=== PATIENT | male | born 1975 | race Two or more races ===

== ENCOUNTER 2016-06-10 02:57 | Observation (INO) | payer OTHER ==
[2016-06-10] VITALS (8 sets, daily range): BP systolic 118–165; BP diastolic 73–105
[~2016-06-10] VITALS: Ht 170.2 cm; Wt 91.3 kg
--- NOTE | 2016-06-10 03:25 | NUR ---
MSE COMPLETED BY DR MUNSON.
--- NOTE | 2016-06-10 03:36 | NUR ---
RECEIVED A 40 YEAR OLD MALE IN ROOM 7 BIB [facility] FROM [facility] WITH C/O CHEST PAIN AND SOB. PT STATES CHEST PAIN STARTED 0230 AND REPORTS DIFFICULTY BREATHING. PT REPORTS CHEST PAIN IS DULL, NON-RADIATING WITH NAUSEA. [facility] GUARDS AT BEDSIDE. PT A&OX4, RESP EVEN AND UNLABORED, ON GURNEY IN POSITION OF COMFORT, ON FULL CM , OXYGEN 2L NC, CALL LIGHT WITHIN REACH, WILL CONTINUE TO MONITOR.
[2016-06-10 03:46] LABS: BASOPHIL % 0.4 % (0-2); PLATELET COUNT 254 x10^3mcL (130-400); RED CELL DISTRIBUTION WIDTH 13.9 % (11.5-14.5)
[2016-06-10 03:58] LABS: CALCIUM 8.8 mg/dL (8.5-10.1); CARBON DIOXIDE 25.3 mmol/L (21-32); CHLORIDE SERUM 102 mmol/L (98-107); CREATININE SERUM 1.2 mg/dL (0.7-1.3); GFR1 > 60 mL/min; GLUCOSE SERUM 126 mg/dL (74-106); POTASSIUM SERUM 3.7 mmol/L (3.5-5.1); SODIUM SERUM 138 mmol/L (136-145)
[2016-06-10 04:04] LABS: ALBUMIN 3.6 g/dL (3.4-5.0); ALKALINE PHOSPHATASE 74 U/L (46-116); ALT/SGPT 29 U/L (16-63); AST/SGOT 17 U/L (15-37); BILIRUBIN TOTAL 0.2 mg/dL (0.20-1.00); TOTAL PROTEIN, SERUM 7.4 g/dL (6.4-8.2)
--- NOTE | 2016-06-10 04:37 | NUR ---
PT ON GURNEY ASLEEP, RESP EVEN AND UNLABOR, VISIBLE CHEST RISE AND FALL. GUARDS AT BEDSIDE, CALL LIGHT WITHIN REACH, WILL CONTINUE TO MONITOR.
[2016-06-10] MEDS ORDERED: TYLENOL WITH CO1 TA2 PO (05:16)
[2016-06-10] MEDS ORDERED: HYDROXYZINE PAM50 MG PO (05:17)
[2016-06-10] MEDS ORDERED: LACTULOSE10 GM/152 PO (05:18)
[2016-06-10] MEDS ORDERED: COLACE100 MG PO (05:18)
[2016-06-10] MEDS ORDERED: XOPENEX HF0.045 MG/1 IH (05:19)
[2016-06-10] MEDS ORDERED: COU2.5 PO (05:20)
--- NOTE | 2016-06-10 05:44 | NUR ---
REPORT GIVEN TO ARVIN ROMERO TO ASSUME CARE OF PT.
--- NOTE | 2016-06-10 06:48 | NUR ---
Admitted this 40y/o male from ED via [facility] for c/o chest pain. Alert and oriented x4. No resp.distress noted on room air. Denies pain at this time. Sinus rhythm tele #[id number]. Admission assessment done. made aware of the admission and will place the orders in the system.
--- NOTE | 2016-06-10 07:40 | NUR ---
RECEIVED PATIENT AAOX4, SITTING UP IN BED, NO DISTRESS NOTED, ABLE TO COMMUNICATE AND FOLLOW COMMANDS, TELE# [address] AND DENIES CHEST PAIN. PALPABLE PULSES TO BUE/BLE. ON ROOM AIR, DENIES SOB, AND RESPIRAITONS EVEN AND UNLAOBRED. DENIES N/V/D. VOIDS FREELY WITH BRP AND UP WITH MINIMAL ASSIST. SALINE LOCK TO LFA CDI AND FLUSHES WELL. BED TO LOWEST POSITION, SIDE RAILS UP X2, TWO GUARDS AT BEDSIDE, CALL LIGHT WITHIN REACH, AND WILL CONTINUE TO MONITOR.
[2016-06-10 08:33] LABS: AMYLASE 40 U/L (25-115); CHOLESTEROL 210 mg/dL (<200); CHOLESTEROL/HDL RATIO 7.5; HDL CHOLESTEROL 28 mg/dL (40-60); LIPASE 244 IU/L (73-393); MAGNESIUM 2.2 mg/dL (1.8-2.4); TRIGLYCERIDES 465 mg/dL (<150)
--- NOTE | 2016-06-10 08:37 | NUR ---
SPOKE TO OVER THE PHONE AND GAVE ME VERBAL ORDERS TO ORDER ALVERTO SCAN/STRESS TEST FOR 1330 06/10/16, GAVE LATEST VS FROM 7:59AM 06/10/16 BP 165/105 HR 69, TEMPERATURE 98.4, RESPIRATIONS 20 AND O2 SAT 96% ON ROOM AIR, MADE AWARE PATIENT HAS LISINOPRIL 5MG PO DAILY AND LOPRESSOR 12.5MG PO DAILY, SAID TO RECHECK BP AND ORDER LISINOPRIL 5MG PO BID, BUT IF DIASTOLIC BP IS >100 D/C LISINOPRIL 5MG PO BID AND OREDER LISINOPRIL 10MG DAILY INSTEAD, SAID TO HOLD LOPRESSOR FOR NOW, ALSO MADE AWARE OF TROPONIN <0.02, WILL FOLLOW ORDERS AND WILL CONTINUE TO MONITOR.
--- NOTE | 2016-06-10 08:50 | NUR ---
PATIENT C/O ACHING BACK PAIN TYLENOL #3 PO Q8H PRN GIVEN FOR PAIN, NO DISTRESS NOTED, RESPIRATIONS EVEN AND UNLABORED, CALL LIGHT WITHIN REACH, TWO GUARDS AT BEDSIDE AND WILL CONTINUE TO MONITOR.
--- NOTE | 2016-06-10 08:50 | NUR ---
RECHECKED BP AND HR ORDERED BY BP WAS 131/70 HR 64 GAVE LISINOPRIL 5MG PO ORDERED BY AND ORDERED LISINOPRIL 5MG PO BID ORDERED BY , AND ORDERED STRESS TEST ORDERED BY WILL CONTINUE TO MONITOR.
--- NOTE | 2016-06-10 11:08 | NUR ---
PATIENT ON LEFT SIDE LAYING DOWN HAVING ECHOCARDIOGRAM DONE, PATIENT C/O ACHING BACK PAIN 10/13, MORPHINE SULFATE 2MG IVP Q4H PRN GIVE FOR BACK PAIN, ALSO INSTRUCTED TO URINATE IN CONTAINTER PROVIDED FOR URINE SAMPLE THAT NEEDS TO BE COLLECTED AND PATIENT VERBALIZED UNDERSTANDING, CALL LIGHT WITHIN REACH, TWO GUARDS AT BEDSIDE, AND WILL CONTINUE TO MONITOR.
--- NOTE | 2016-06-10 14:23 | NUR ---
LEXISCAN CARDIOLITE STRESS COMPLETED
--- NOTE | 2016-06-10 14:47 | NUR ---
SPOKE TO OVER THE PHONE AND GAVE VERBAL ORDERS TO ORDER CARDIAC DIET, LIPITOR 20MG PO DAILY, AND D/C LISINOPRIL 5MG PO BID AND ORDER LISINOPRIL 5MG PO BID AND HOLD IF SBP <105, WILL FOLLOW ORDERS AND WILL CONTINUE TO MONITOR.
--- NOTE | 2016-06-10 15:14 | NUR ---
CALLED TO AND MADE HIM AWARE OF LEXISCAN RESULT W/ NEW ORDER, OKAY TO D/C PT BACK TO [facility]. CALLED TO AND MADE HIM AWARE OF ABOVE, NEW ORDER OKAY TO D/C PT BACK TO [facility]. KORTNEY SHERIDAN ASSIGNED TO THIS PT MADE AWARE OF ABOVE.
--- NOTE | 2016-06-10 15:25 | NUR ---
PATIENT C/O ACHING BACK PAIN 10/13, MORPHINE SULFATE 2MG IVP Q4H PRN GIVE FOR BACK PAIN, TWO GUARDS AT BEDSIDE, NO DISTRESS NOTED, CALL LIGHT WITHIN REACH, AND WILL CONTINUE TO MONITOR.
[2016-06-10 15:42] LABS: microscopic required? NO
[2016-06-10 16:45] LABS: urine erythrocyte NEGATIVE (NEGATIVE)
[2016-06-10 16:58] LABS: AMPHETAMINE QUAL UR NONE DETECTED (NEG <=1000)
--- NOTE | 2016-06-10 18:35 | NUR ---
PATIENT SITTING UP IN BED AAOX4, NO DISTRESS NOTED, RESPIRAITONS EVEN AND UNLABORED, DENIES PAIN, SALINE LOCK TO LFA CDI, CALL LIGHT AND BELONGINGS WITHIN REACH, AND WILL ENDORSE TO NIGHT NURSE.
--- NOTE | 2016-06-10 19:30 | NUR ---
RECEIVED PT FROM [facility] NEUMANN. ALL DISCHARGE PAPERWORK COMPLETED AND NO TELE IN PLACE. PER OFFICERS BY BEDSIDE, TRANSPORTATION HAS BEEN PLACED BUT NO TIME OF ENVIRONMENTAL HEALTH SAFETY ENGINEER YET. WILL CONTINUE TO MONITOR.
--- NOTE | 2016-06-10 19:51 | NUR ---
PATIENT REQUESTING FOR PAIN MEDICATION AND BREATHING TREATMENT. PAIN MEDICATION PROVIDED.
== END 2016-06-10 22:35 | disposition other institution (70) | DRG 303 ==
LOC: ED 02:57 → DU 05:20
PROVIDERS: Emergency Medicine; ADMIT Internal Medicine
DX: I25.119 Atherosclerotic heart disease of native coronary artery with unspecified angina pectoris (principal); I10 Essential (primary) hypertension; L29.9 Pruritus, unspecified; J44.9 Chronic obstructive pulmonary disease, unspecified; E78.5 Hyperlipidemia, unspecified; F17.210 Nicotine dependence, cigarettes, uncomplicated; Z86.718 Personal history of other venous thrombosis and embolism; Z95.828 Presence of other vascular implants and grafts; Z79.01 Long term (current) use of anticoagulants; Z85.47 Personal history of malignant neoplasm of testis; Z90.79 Acquired absence of other genital organ(s); Z85.72 Personal history of non-Hodgkin lymphomas; Z92.21 Personal history of antineoplastic chemotherapy; Z22.322 Carrier or suspected carrier of Methicillin resistant Staphylococcus aureus
CPT/HCPCS: 80307; 83880; A9500; G0378; J2270; J2785; Q0092; Q0177